=== PATIENT | male | born 1970 | race Caucasian/White ===

== ENCOUNTER → 2019-04-03 | Outpatient (CLI) | payer OTHER | END | disposition home or self-care (01) | LOC: MRI 09:00 | DX: M54.42 Lumbago with sciatica, left side (principal); M62.81 Muscle weakness (generalized) ==

== ENCOUNTER 2020-04-15 14:50 | Emergency (ER) | payer OTHER ==
[~2020-04-15] VITALS: Ht 182.8 cm; Wt 100.7 kg
[2020-04-15 15:41] LABS: BASO % 0.4 % (0.0-1.0); EOS # 0.1 10*3/uL (0.0-0.4); EOS % 2.1 % (1.0-4.0); HEMATOCRIT 46.2 % (42.0-52.0); LYMPH # 1.3 10*3/uL (1.3-4.4); LYMPH % 26.9 % (27.0-41.0); MEAN CELL VOLUME 85.9 fl (80.0-94.0); MEAN CORPUSCULAR HGB 29.2 pg (27.0-31.0); MEAN PLATELET VOLUME 10.4 fl (9.6-12.3); MONO # 0.4 10*3/uL (0.1-1.0); MONO % 8.5 % (3.0-9.0); NEUT % 61.7 % (47.0-73.0); PLATELET COUNT AUTOMATED 129 10*3/uL (130-400); RED BLOOD COUNT 5.38 10*6/uL (4.50-5.90); RED CELL DISTRI WIDTH 11.7 % (0-14.5); WHITE BLOOD COUNT 4.8 10*3/uL (4.8-10.8)
[2020-04-15 15:54] LABS: ACT PARTIAL THROMBO TIME 26.2 SECONDS (20.0-32.1)
[2020-04-15 15:59] LABS: ALBUMIN 4.3 gm/dl (3.1-4.5); ALKALINE PHOSPHATASE 77 U/L (45-117); BUN 23 mg/dl (7-24); CHLORIDE 108 mmol/L (98-107); POTASSIUM 3.6 mmol/L (3.5-5.1); SGOT/AST 23 IU/L (3-35); SGPT/ALT 41 U/L (12-78); SODIUM 137 mmol/L (136-145); TOTAL PROTEIN 7.9 gm/dL (6.4-8.2)
[2020-04-15 16:05] LABS: TROPONIN I < 0.015 ng/ml (<0.045)
== END 2020-04-15 18:51 | disposition home or self-care (01) ==
LOC: ED 14:50
PROVIDERS: Emergency Medicine
DX: R07.9 Chest pain, unspecified (principal); F17.200 Nicotine dependence, unspecified, uncomplicated

== ENCOUNTER → 2020-05-12 | Outpatient (CLI) | payer OTHER ==
[~2020-05-12] MED LIST: LAMICTAL25 MG PO; ZOLOFT100 MG PO
--- NOTE | 2020-05-12 07:23 | NUR ---
INFORMED CONSENT SIGNED FOR CARDIOLYTE STRESS TEST WITH DR. GUTIÉRREZ. RESTING EKG NSR, HR 65, BP 128/84. STATES THAT HE IS CURRENTLY HAVING CHEST DISCOMFORT RATING IT A 2/10 AND THAT HE HAS PAIN MOST OF TIME. COMPLETED 7:03 OF A 2 MINUTE BREE PROTOCOL COMPLETING 1:03 OF STAGE IV, 4.2MPH,16% GRADE. PEAK HEART RATE OF 151 WHICH IS 88% PREDICTED MAXIMUM AND A PEAK BP OF 168/60. TEST TERMINATED D/T FATIGUE. NO ARRHYTHMIAS NOTED. NONDIANOSTIC ST CHANGES PRESENT. CHEST DISCOMFORT REMAINED THE SAME THROUGHOUT TEST. LAST RECOVERY HR 97, BP 116/78. WAITING NUCLEAR SCANNING IN STABLE CONDITION.
== END | disposition home or self-care (01) ==
LOC: CARD 05-11 07:45
DX: I20.9 Angina pectoris, unspecified (principal)

== ENCOUNTER → 2020-09-03 | Outpatient (CLI) | payer OTHER | END | disposition home or self-care (01) | LOC: MRI 11:00 | PROVIDERS: ATTEND Nurse Practitioner Family | DX: M25.572 Pain in left ankle and joints of left foot (principal) ==

== ENCOUNTER 2021-06-17 14:29 | Emergency (ER) | payer OTHER ==
[~2021-06-17] VITALS: Ht 180.3 cm; Wt 102.1 kg
[2021-06-17 15:52] LABS: BASO % 0.3 % (0.0-1.0); EOS # 0.1 10*3/uL (0.0-0.4); EOS % 1.2 % (1.0-4.0); HEMATOCRIT 43.6 % (42.0-52.0); LYMPH # 1.2 10*3/uL (1.3-4.4); LYMPH % 19.8 % (27.0-41.0); MEAN CELL VOLUME 86.3 fl (80.0-94.0); MEAN CORPUSCULAR HGB 28.5 pg (27.0-31.0); MEAN PLATELET VOLUME 9.9 fl (9.6-12.3); MONO # 0.8 10*3/uL (0.1-1.0); MONO % 12.8 % (3.0-9.0); NEUT # 3.9 10*3/uL (2.3-7.9); NEUT % 65.2 % (47.0-73.0); PLATELET COUNT AUTOMATED 129 10*3/uL (130-400); RED BLOOD COUNT 5.05 10*6/uL (4.50-5.90); RED CELL DISTRI WIDTH 11.7 % (0-14.5)
[2021-06-17 16:05] LABS: ALBUMIN 3.9 gm/dl (3.1-4.5); ALKALINE PHOSPHATASE 77 U/L (45-117); BUN 21 mg/dl (7-24); CHLORIDE 108 mmol/L (98-107); CREATININE 1.05 mg/dL (0.70-1.30); POTASSIUM 4.1 mmol/L (3.5-5.1); SGOT/AST 23 IU/L (3-35); SGPT/ALT 38 U/L (12-78); SODIUM 141 mmol/L (136-145); TOTAL PROTEIN 7.2 gm/dL (6.4-8.2)
== END 2021-06-17 17:10 | disposition home or self-care (01) ==
LOC: ED 14:29
PROVIDERS: Emergency Medicine
DX: R22.1 Localized swelling, mass and lump, neck (principal); Z20.822 Contact with and (suspected) exposure to COVID-19

== ENCOUNTER 2021-06-20 20:56 | Emergency (ER) | payer OTHER ==
[~2021-06-20] VITALS: Ht 182.8 cm; Wt 104.3 kg
== END 2021-06-20 23:05 | disposition left against medical advice (07) ==
LOC: ED 20:56
DX: J02.9 Acute pharyngitis, unspecified (principal); H92.09 Otalgia, unspecified ear; Z53.21 Procedure and treatment not carried out due to patient leaving prior to being seen by health care provider

== ENCOUNTER 2024-08-05 14:55 | Emergency (ER) | payer OTHER ==
[~2024-08-05] VITALS: Wt 106.6 kg
== END 2024-08-05 17:28 | disposition left against medical advice (07) ==
LOC: ED 14:55
DX: R05.9 Cough, unspecified (principal); J02.9 Acute pharyngitis, unspecified; Z53.21 Procedure and treatment not carried out due to patient leaving prior to being seen by health care provider